=== PATIENT | female | born 1990 | race Two or more races ===

== ENCOUNTER 2025-03-30 08:52 | Emergency (ER) | payer MEDICAID, SELFPAY ==
[2025-03-30 09:01] VITALS: BP 133/66; PULSE 87; RESP 17; TEMP 36.8; O2SAT 97; BMI 21.7
[2025-03-30 09:43] LABS: Strep A Rapid Negative (Negative)
[2025-03-30 12:25] LABS: Mono Screen Negative (Negative)
--- NOTE | 2025-03-30 12:38 | EDNOTE_ITS ---
ED Dental RME/HPI General Chief complaint: Dental/Oral/Throat Stated complaint: Sore throat X 6 weeks Time Seen by Provider: 03/30/25 08:55 Arrival date/time: 03/30/25 08:52 34-year-old female presents to the emergency department for complaint of sore throat, pain to her lips and tongue with a burning sensation ongoing for the last 6 weeks patient reports she has been given medication by her PCP as well as other doctor report symptoms persist patient reports no difficulty swallowing or breathing reports no chance of Limitations: no limitations Related Data Home Medications ?Medication ?Instructions ?Recorded ?Confirmed vitamins-iron fumarate 27 1 tab PO QDAY 09/0109/01/18 mg iron-folic acid 0.8 mg tablet ( Vitamin) Previous Rx's ?Medication ?Instructions ?Recorded diphenhydramine HCl 25 mg capsule 25 mg PO Q8H PRN all ergic symptoms 03/30/25 (Benadryl) #30 caps prednisone 10 mg tablet 30 mg (3 x 10 mg) PO BID 3 d ays 03/30/25 #18 tabs Allergies Allergy/AdvReac Type Severity Reaction Status Date / Time No Known Drug Allergies Allergy Verified 03/30/25 08:56 Review of Systems Review of Systems Systems Reviewed: All systems reviewed, normal except as documented Constitutional Constitutional: Reports system reviewed and no additional complaints, except as documented, Denies fever(s) and Denies headache(s) Eyes Eyes: Reports system reviewed and no additional complaints, except as documented and Denies blurry vision ENT Ears, Nose, Mouth, and Throat: Reports system reviewed and no additional complaints, except as documented, Denies headache(s), Denies nasal congestion, Denies nasal discharge and Reports other (Burning sensation of tongue and lips x 1 month) Cardiovascular Cardiovascular: Reports system reviewed and no additional complaints, except as documented, Denies chest pain and Denies dyspnea Respiratory Respiratory: Reports system reviewed and no additional complaints, except as documented, Denies chest congestion, Denies cough and Denies dyspnea Gastrointestinal Gastrointestinal: Reports system reviewed and no additional complaints, except as documented and Denies abdominal pain Integumentary/Breasts Skin/Breast: Reports system reviewed and no additional complaints, except as documented and Denies rash Neurologic Neurologic: Reports system reviewed and no additional complaints, except as documented, Reports as per HPI and Denies headache(s) Past Medical History Past Medical History NEUROLOGIC: Negative Neurological Disorders or Seizures CARDIAC: Negative Cardiac Disorders or Congestive Heart Failure RESPIRATORY: Negative Chronic Obstructive Pulmonary Disease (COPD) GASTROINTESTINAL: Negative Gastrointestinal Disorders, Hepatitis or Colorectal Cancer GENITOURINARY: Negative Genitourinary Disorders, Renal Disease or Prostate C ancer REPRODUCTIVE: Negative Breast Cancer, Endometriosis, Pelvic Inflammatory Disease, Previous Pregnancies, Testicular Cancer or Uterine Prolapse MUSCULOSKELETAL: Negative Musculoskeletal Disorders or Bone Cancer ENDOCRINE: Negative Endocrine Disorders, Diabetes Mellitus Type 1 or Diabetes Mellitus Type 2 HEMATOLOGIC: Negative Blood Disorders OTHER HISTORY: Positive Hospitalization; Negative Autoimmune Disease, Down Syndrome, Developmental Delay, Shingles, Falls, Blood Transfusions, Blood Transfusion Reaction, Anesthesia Reactions, Organ Transplant, Chemotherapy, Radiation Therapy, Hyperbaric Therapy, MRSA, VRSA, Vancomycin-Resistant Enterococci, Human Immunodeficiency Virus (HIV), Chicken Pox, Measles, Mumps, Rubella (Telugu Measles), Pertussis, Clostridium Difficile, Breast Cancer, Cervical Cancer, Colorectal Cancer, Lung Cancer, Ovarian Cancer, Prostate Cancer or Testicular Cancer Family History FAMILY HISTORY: Negative Family Psychiatric Problems, Family Respiratory Disorders, Family Cardiac Disorders, Family Gastrointestinal Problems, Family Cancer, Family Surgery or Family Anesthesia Reaction Surgical History SURGICAL: Positive Section; Negative Organ Transplant Social History SMOKING STATUS: Never smoker ED Exam General Limitations: Present no limitations General appearance: Present alert and in no apparent distress Head Head exam: Present atraumatic Eye Eye exam: Present normal appearance, PERRL and EOMI ENT ENT exam: Present normal exam, normal oropharynx, mucous membranes moist and other (Patient has no tongue lip or throat swelling) Neck Neck exam: Present normal inspection, full ROM and trachea midline Chest Chest inspection: Present normal inspection and symmetric chest wall rise Respiratory Respiratory exam: Present normal lung sounds bilaterally Cardiovascular Cardiovascular exam: Present regular rate, normal rhythm and normal heart sounds Abdominal Exam Abdominal exam: Present soft and normal bowel sounds Extremities Exam Extremities exam: Present normal inspection and full ROM Back Exam Back exam: Present normal inspection and full ROM Neurological Exam Neurological exam: Present alert, oriented X3 and CN II-XII intact Psychiatric Psychiatric exam: Present normal affect and normal mood Skin Skin exam: Present warm, dry, intact and normal color Course Quality Measures none Orders Category Date Time Status [place] Screen Stat Lab 03/30/25 11:06 Completed Strep A Rapid Stat Lab 03/30/25 09:07 Completed Vital Signs Vital signs: Vital Signs Temperature 98.2 F 03/30/25 09:01 Pulse Rate 87 03/30/25 09:01 Respiratory Rate 17 03/30/25 09:01 Blood Pressure 133/66 H 03/30/25 09:01 Pulse Oximetry (%) 97 03/30/25 09:01 Oxygen Delivery Method Room Air 03/30/25 09:01 O2 saturation 97% room air within normal limits Dental / Oral MDM Narrative MDM Narrative:: 34-year-old female presents to the emergency department for complaint of sore throat, pain to her lips and tongue with a burning sensation ongoing for the last 6 weeks patient reports she has been given medication by her PCP as well as other doctor report symptoms persist patient reports no difficulty swallowing or breathing reports no chance of Clinically patient is well-appearing patient does not appear ill or toxic no acute distress Patient checked for mono as well as strep both of which are negative Patient has no clinical abnormalities on exam Patient discharged home in no distress to follow-up primary care doctor next 24 to 48 hours for worsening symptoms or concerns return immediately Patient data External records reviewed:: [facility] previous records Clinical information provided by:: patient Social determinants that could affect healthcare access:: none Patient has the following chronic illnesses:: None How is presenting disease/condition affected by chronic disease/condition?: no chronic disease Evaluation data The following diagnostics were reviewed and interpreted by me:: lab results Lab and/or radiology exams considered but not ordered:: Labs obtained Interpretation Summary: Reviewed by me Medications / Prescriptions Medications or Prescriptions considered but not ordered:: Given Medication administrations:: Given Consultations Consultation(s) initiated? (list below): No Diagnosis Dental Differential Diagnosis: gingival abscess, dental caries and toothache Most likely diagnosis given after review of the tests above:: Mouth pain Admission Indicated Admission indicated?: not indicated Admission Request Was there a request for admission?: No Disposition Plan Disposition Plan: Discharge Discharge Attestation Discharge Attestation: The patient and all family members were given an opportunity to ask questions and understood the discharge instructions. Discharge instructions specifically effects, indications for sooner follow up or return to the emergency department, and the expected course of current diagnosis. Patient condition: Stable Discharge Plan Plan Patient Disposition: HOME (Self Care) Discharge Disposition comment: Stable Prescriptions/Referrals Prescriptions/Med Rec: New prednisone 10 mg tablet 30 mg PO BID 3 Days Qty: 18 0RF diphenhydramine HCl [Benadryl] 25 mg capsule 25 mg PO Q8H PRN (Reason: allergic symptoms) Qty: 30 0RF No Action Vitamin 27 mg iron- 0.8 mg Tablet 1 tab PO QDAY Referrals: Minal Donis PA-C [Primary Care Provider] - In 1 week Problem List Clinical Impression: Mouth pain Patient/Caregiver Discharge Instructions Education Materials: Parts of the Mouth Additional Instructions: Please follow up with your primary care doctor in the next 24-48hrs for any worsening symptoms return here immediately Print Language: Japanese Stand Alone Forms: Itzel Award Info., Patient Portal Info Letter PA/GEOPHYSICAL DRAFTER Supervising Physician PA/GEOPHYSICAL DRAFTER Supervising Physician: Dr. Veronica
== END 2025-03-30 13:03 | disposition home or self-care (01) ==
PROVIDERS: Nurse Practitioner Primary Care; Emergency Provider Emergency Medicine; PCP Specialist
DX: K13.79 Other lesions of oral mucosa (principal)
CPT/HCPCS: 36415; 86308; 87651; 99281